=== PATIENT | female | born 2000 | race Caucasian/White ===

== ENCOUNTER 2023-10-06 10:18 | Day surgery (SDC) | payer BC ==
[~2023-10-06] VITALS: Ht 157.5 cm; Wt 72.6 kg
[2023-10-06] MEDS ORDERED: ceFAZolin SODIUM 1 GM VIAL ONE (12:30)
[2023-10-06 12:40] VITALS: O2SAT 98
[2023-10-06] MEDS ORDERED: ACETAMINOPHEN I.V. 1000 MG 100 ML IV ONE (13:02)
[2023-10-06] MEDS ORDERED: METOCLOPRAMIDE HCL 10 MG/2 ML VIAL IVP PRN (13:15)
[2023-10-06] MEDS ORDERED: LR 1,000 ML IV SCH (13:15)
[2023-10-06] MEDS ORDERED: MEPERIDINE HCL/PF 25 MG/ML DISP.SYRIN IVP PRN (13:15)
[2023-10-06] MEDS ORDERED: MIDAZOLAM HCL 2 MG/2 ML VIAL (VERSED) IVP PRN (13:15)
[2023-10-06] MEDS ORDERED: ONDANSETRON HCL 4 MG/2 ML VIAL IVP PRN (13:30)
[2023-10-06] MEDS: HYDROmorphone 1 MG/ML INJ. CARTRIDGE IVP PRN ×2 (14:00→15:10)
[2023-10-06] MEDS ORDERED: HYDROmorphone 1 MG/ML INJ. CARTRIDGE ONE ×3 (14:05→16:48)
[2023-10-06 17:51] VITALS: BP_SYST 126; PULSE 91; RESP 18; TEMP 96.8
== END 2023-10-06 17:22 | disposition home or self-care (01) ==
LOC: SDS 10:18 → SMU 10:19 → SDS 17:22
PROVIDERS: ATTEND Specialist
DX: O03.4 Incomplete spontaneous abortion without complication (principal); E28.2 Polycystic ovarian syndrome; E55.9 Vitamin D deficiency, unspecified; E78.5 Hyperlipidemia, unspecified; Z88.1 Allergy status to other antibiotic agents; Z3A.10 10 weeks gestation of pregnancy
CPT/HCPCS: 87081; 59812; 88305; J0690; J1885; J3465; J2405; J2704; J3010; J1170; J7120; J0131